=== PATIENT | female | born 1980 | race Hispanic/Latino ===

== ENCOUNTER 2020-01-08 06:50 | Outpatient (CLI) | payer OTHER, SELFPAY ==
--- NOTE | ~2020-01-08 | MR_ITS ---
EXAMINATION: MR lumbar spine wo [facility] EXAM DATE: 01/08/2020 07:26 INDICATION: Right-sided low back pain, buttock pain, hip and leg pain. TECHNIQUE: Multi-sequential, multiplanar MR images of the lumbar spine were obtained without contrast . Sagittal T1, T2, T2 fat saturation images. Axial T2 weighted images. There is no prior study for comparison. FINDINGS: There is moderate disc disease at L4-5 with disc extrusion that will be described below. Th ere are some degenerative endplate signal changes at this level. There are no suspicious focal verte bral signal abnormalities identified. Mild disc disease at L3-4 and L5-S1. The vertebral bodies are a ligned in the AP dimension. The conus medullaris terminates at the L1 level and has normal signal int ensity and morphology. Right renal fluid signal intensity lesion, imaged portion consistent with 2.4 cm cyst. Level by level evaluation: T12-L1: Disc does not extend beyond the endplate margin. Facet arthropathy: None. Neural foraminal stenosis: No stenosis. Central canal stenosis: No stenosis. L1-L2: Disc does not extend beyond the endplate margin. Facet arthropathy: Mild. Neural foraminal stenosis: No stenosis. Central canal stenosis: No stenosis. L2-L3: Disc does not extend beyond the endplate margin. Facet arthropathy: Mild to moderate. Neural foraminal stenosis: No stenosis. Central canal stenosis: No stenosis. L3-L4: There is a mild diffuse disc bulge. Facet arthropathy: Mild to moderate. Neural foraminal stenosis: No stenosis. Central canal stenosis: Mild. L4-L5: There is a mild to moderate diffuse disc bulge with superimposed moderate-sized right central extrusion causing mass effect on traversing L5 nerve root in the lateral recess. Facet arthropathy: Mild bilateral. Neural foraminal stenosis: Mild to moderate bilateral. Central canal stenosis: Significant right lateral recess, overall mild to moderate. L5-S1: There is a mild diffuse disc bulge. Facet arthropathy: Mild. Neural foraminal stenosis: No stenosis. Central canal stenosis: No stenosis. IMPRESSION: 1. L4-5 moderate disc disease, moderate sized extrusion causing mass effect on traversing right L5 n erve root in the lateral recess. Reviewed, dictated and finalized at location A. IMPRESSION: 1. L4-5 moderate disc disease, moderate sized extrusion causing mass effect on traversing right L5 nerve root in the lateral recess.
== END 2020-01-08 06:51 | disposition home or self-care (01) ==
LOC: ANHIMG 06:52
PROVIDERS: PCP Family Medicine; Visit Provider Family Medicine
DX: M54.16 Radiculopathy, lumbar region (principal); M51.9 Unspecified thoracic, thoracolumbar and lumbosacral intervertebral disc disorder
CPT/HCPCS: 72148

== ENCOUNTER → 2021-06-29 16:29 | Outpatient (CLI) | payer OTHER, SELFPAY ==
--- NOTE | ~2021-06-29 | MM_ITS ---
EXAMINATION: MM screening bea BI w harrison HISTORY: Screening mammogram TECHNIQUE: Craniocaudal and mediolateral oblique 3-D tomosynthesis images were obtained and synthetic 2-D images were generated. CAD analysis was submitted and interpreted. COMPARISON: None, baseline BREAST PARENCHYMAL COMPOSITION: The breasts are heterogeneously dense, which may obscure small masses . FINDINGS: RIGHT BREAST: There is no evidence of suspicious mass, calcification, or architectural distortion to suggest malignancy. LEFT BREAST: There is focal asymmetry in the upper outer quadrant of the breast. IMPRESSION: 1. Focal asymmetry of the left breast. 2. Additional mammographic views and possible breast ultrasound are recommended. BI-RADS Category 0: Incomplete: Needs additional imaging evaluation. Reviewed, dictated and finalized at location A. R DISTRIBUTION ENGINEER IMPRESSION: 1. Focal asymmetry of the left breast. 2. Additional mammographic views and possible breast ultrasound are recommended . BI-RADS Category 0: Incomplete: Needs additional imaging evaluation.
== END ==
PROVIDERS: Visit Provider Physician Assistant
DX: Z12.31 Encounter for screening mammogram for malignant neoplasm of breast (principal); R92.8 Other abnormal and inconclusive findings on diagnostic imaging of breast
CPT/HCPCS: 77063; 77067

== ENCOUNTER → 2021-07-21 07:35 | Outpatient (CLI) | payer OTHER, SELFPAY ==
--- NOTE | ~2021-07-21 | MMUS_ITS ---
EXAMINATION: MM diagnostic bea LT w harrison, US breast LT limited HISTORY: Follow-up left breast asymmetry TECHNIQUE: Additional 3-D tomosynthesis images of the left breast were performed and synthetic 2-D im ages were generated. CAD analysis was submitted and interpreted. High resolution Limited left breast ultrasound was performed. COMPARISON: 06/29/2021 BREAST PARENCHYMAL COMPOSITION: The breasts are heterogenously dense, which may obscure small masses. FINDINGS: MAMMOGRAPHIC FINDINGS: Asymmetry in the outer aspect of the left breast is less dense with spot compression views. No discre te mass, architectural distortion or suspicious cluster of calcifications are identified. ULTRASOUND: Limited left breast ultrasound: Normal heterogeneous echotexture without focal mass. IMPRESSION: 1. No evidence for malignancy in the left breast. 2. Routine yearly screening mammogram and regular clinical breast examination are recommended. BI-RADS Category 2: Benign finding(s). Reviewed, dictated and finalized at location A. IMPRESSION: 1. No evidence for malignancy in the left breast. 2. Routine yearly screening mammogram and regular clinical breast examination a re recommended. BI-RADS Category 2: Benign finding(s).
== END ==
PROVIDERS: PCP Physician Assistant; Visit Provider Physician Assistant
DX: R92.8 Other abnormal and inconclusive findings on diagnostic imaging of breast (principal)
CPT/HCPCS: 76642; 77061; 77065; G0279

== ENCOUNTER 2022-02-05 08:28 | Outpatient (CLI) | payer OTHER, SELFPAY | END 2022-02-05 08:29 | disposition home or self-care (01) | LOC: ANHSURGERY 08:34 | PROVIDERS: PCP Physician Assistant; Visit Provider Obstetrics & Gynecology | DX: Z01.812 Encounter for preprocedural laboratory examination (principal); N92.0 Excessive and frequent menstruation with regular cycle | CPT/HCPCS: 36415; 86850; 86900; 86901 ==

== ENCOUNTER 2022-02-12 00:58 | Day surgery (SDC) | payer OTHER, SELFPAY ==
[2022-02-01 15:47] VITALS: BMI 35.6
--- NOTE | 2022-02-01 15:49 | SUR.PREOP ---
Report to the Outpatient Waiting Room, entrance under the green pavilion located off [facility], at time _0600 on date _02/12/22 . OR Time: __729 . Time changes happen often and if your time is changed the preop area will call you the afternoon before. - You and your visitor will be asked to self-screen and do not enter if you have any COVID symptoms. - We encourage only one visitor and NO visitors under age 16 are allowed at this time. Your visitor will receive communication by the phone number that is given day of service. - The patient visitor is requested to social distance or may leave the building when not with patient due to restrictions. - A mask is required within the hospital. Patients may have clear liquids (water, carbonated beverages, clear teas, apple juice) until 3 hours prior to surgery with a maximum of 20 ounces. - No food from midnight until time of surgery - Infants may have breast milk until 4 hours before surgery, formula 6 hours prior to surgery. - Children will be allowed to drink immediately following surgery. If applicable, please bring a bottle or sippy cup to assist with drinking. Juice, water, soda, and popsicles are readily available. For infants on formula, please bring formula the day of surgery. Pacifiers are allowed. Take the following medications with a SIP of water the morning of surgery: _SERTRALINE Medications to discontinue per physician N/A Date to take last dose____N/A Please no make-up, nail [place] citizen, hairspray, perfume, deodorant, or body powder the day of surgery. No jewelry (including any body piercings) or valuables the day of surgery, leave them at home. Please take a shower or bath the night before, or the morning of, surgery with an antibacterial soap. Wear comfortable, loose fitting clothing. Children are encouraged to wear pajamas. - Jewelry must be removed prior to entering the operating room. Rings and piercings that are not removed may be cut off. - The hospital will not accept responsibility for valuables. - Please leave all valuables, including medications, at home the day of surgery. If you are going home after surgery, a licensed rear load truck driver must drive you home. - NO public transportation without another adult. - We recommend that an adult stay with you for 24 hours following discharge. - We also recommend that you do not drive, make important decision, drink alcoholic beverages, or take any drugs that were not prescribed by your health care provider for at least 24 hours after your discharge time. For Pediatric surgeries, we recommend two adults accompany the child home. Follow any additional instructions given to you from your surgeon. If you or anyone in your household have experienced Covid symptoms in the past week, please notify your surgeon or the nurse liaison at the phone number below for possible testing. Telephone instructions given to _NISA HOLLIDAY and asked if any additional questions and then verbalized understanding. Patient advised to call surgeon office or pre surgery nurse liaison [phone] if any additional questions.
--- NOTE | 2022-02-11 19:04 | PM.IMHP ---
H&P: HPI History of Present Illness Date/Time: 02/11/22 19:04 Chief Complaint: AUB Narrative: Lacie is a 41yo P2002, who presents for scheduled surgery. She has a normal pap 06/2020. She reports her cycles are extremely heavy and painful. They have been worsening over the last 6 months. She reports that she passes dime sized clots and has to wear a super plus tampon and pad because she bleeds through so quickly. She has extreme cramping that radiates down her legs and into her back. She is on iron for the last 6 months rx'ed by her PCP. She did have heavy bleeding like this around 2018 where US showed fibroids (largest measuring 2.6 and 3.8cm). She underwent HSC/D&C in 04/2019 and her bleeding did lighten until the beginning of this year. She denies any major pain outside of her cycle. Normal bowel function. She does report bothersome HEMAL. She is sexually active w/o issue; has BTL. US confirmed the fibroids have grown in size; largest is now 5.2cm, with another fibroid now noted. Her uterus has also increased in size. She is now ready to proceed with hysterectomy (her mother and 3 sisters all had to have hysterectomies due to AUB/fibroids). She is worried about time off and depression (had had it after every surgery; unsure if it's hormonal related, or just change in her normal schedule). Review of Systems Review of Systems: All systems reviewed & are unremarkable except as noted in HPI and below PMFSH Past Medical History Medical History Chronic low back pain Current severe episode of major depressive disorder without psychotic features (normal spontaneous vaginal delivery) (~1998) (normal spontaneous vaginal delivery) (~2002) Surgical History Surgical History H/O gynecological procedure Hysteroscopy remove myoma History of tubal ligation Status post breast reduction Reduction mammoplasty, bilateral Family History Family History Father Hypertension Patient's father is in good health Mother Hypertension Patient's mother is in good health Other Diabetes mellitus Social History Social History Smoking status: Never smoker Second hand tobacco smoke exposure: No Alcohol intake: current Drinks per week: 2 Substance use: never Substance use type: does not use Additional living arrangements comments: Additional occupation/education comments: Human resources Gender identity (if verbalized by the patient): Female Sexual Orientation (if Verbalized by the Patient): Straight or Heterosexual Spiritual care concerns: No Meds Home Medications and Allergies Home Medications Medication Instructions Recorded Confirmed Type sertraline 50 mg tablet 50 mg PO DAILY #90 tabs 01/30/22 02/01/22 Rx Allergies Allergy/AdvReac Type Severity Reaction Status Date / Time No Known Allergies Allergy Verified 02/01/22 15:28 Exam Const: General: cooperative, comfortable, no acute distress and obese Resp: Effort & Inspection: normal respiratory effort Cardio: Rate: regular rate GI: Inspection: normal to inspection GI Palp: No abdominal tenderness and Yes Soft to palpation : Other: deferred to the OR Skin: General skin exam: normal color Neuro: General: patient oriented x3 Extrem: General: normal to inspection Psych: Appearance: grossly normal Affect: normal affect Attitude: cooperative Assessment and Plan Assessment and plan (1) Fibroid uterus: Qualifiers: Uterine leiomyoma location: unspecified location Qualified Code(s): D25.9 - Leiomyoma of uterus, unspecified Code(s): D25.9 - Leiomyoma of uterus, unspecified Status: Acute (2) Menorrhagia: Qualifiers: Menorrhagia type: with regular cycle Qualified Code(s):
[2022-02-12] VITALS (13 sets, daily range): BP systolic 82–117; BP diastolic 38–74; PULSE 56–71; RESP 12–19; TEMP 36.3–36.8; O2SAT 93–100
[2022-02-12] MEDS: ACETAMINOPHEN 500 MG TABLET 1000 MG PO ×3 (06:35→23:04)
[2022-02-12] MEDS: KETOROLAC 15 MG/ML VIAL (*BKC) IV PUSH (06:59)
[2022-02-12] MEDS: LACTATED RINGERS 1,000 ML 30 ML IV CONT ×3 (07:00→10:55)
--- NOTE | 2022-02-12 07:00 | WPDHPUPDATE1 ---
History and Physical Update Update Date/Time: 02/12/22 07:00 History and Physical has been reviewed, including an updated exam of the patient. There are NO changes in the patient's condition. Risks, benefits, and alternatives have been discussed and questions answered. Patient agrees to proceed with procedure.
--- NOTE | 2022-02-12 07:02 | P.PNAN_ITS ---
Anes - Initial Pre Proc Eval Procedure: Operation Date: 02/12/22 07:30 Proposed Procedures p Robotic Assisted Total Laparoscopic Hysterectomy with Bilateral Salpingectomy - Yamileth Hull MD Date/Time: 02/12/22 07:02 Surgeon: Yamileth Hull MD Pre Op Diagnosis: menometrorrhagia, Uterine Fibroid Patient Data Age: 41 Gender: F Height: 1.68 m Weight: 100.4 kg Last Vital Signs Temp 36.5 C 02/12/22 06:56 Pulse 63 02/12/22 06:56 Resp 16 02/12/22 06:56 BP 117/64 02/12/22 06:56 Pulse Ox 98 02/12/22 06:56 O2 Del Method Room Air 02/12/22 06:56 Allergies Allergy/AdvReac Type Severity Reaction Status Date / Time No Known Allergies Allergy Verified 02/12/22 06:34 Home Medications Medication Instructions Recorded Confirmed Type sertraline 50 mg tablet 50 mg PO DAILY #90 tabs 01/30/22 02/12/22 Rx Patient hx anesthesia problems: none Family hx anesthesia problems: none Results Review: All pre-operative results and documents have been reviewed as part of the pre- operative evaluation. [facility] Past Medical History Medical History Chronic low back pain Current severe episode of major depressive disorder without psychotic features (normal spontaneous vaginal delivery) (~1998) (normal spontaneous vaginal delivery) (~2002) Surgical History Surgical History H/O gynecological procedure Hysteroscopy remove myoma History of tubal ligation Status post breast reduction Reduction mammoplasty, bilateral Family History Family History Father Hypertension Patient's father is in good health Mother Hypertension Patient's mother is in good health Other Diabetes mellitus Social History Social History Smoking status: Never smoker Second hand tobacco smoke exposure: No Alcohol intake: current Drinks per week: 2 Substance use: never Substance use type: does not use Living arrangements: with family Additional living arrangements comments: Additional occupation/education comments: Human resources Gender identity (if verbalized by the patient): Female Sexual Orientation (if Verbalized by the Patient): Straight or Heterosexual Spiritual care concerns: No Anes - Eval Final PreProcedure Day of Procedure 02/12/22 07:02 Patient weight: obese Heart: regular rate and rhythm Lungs: clear to auscultation Airway: Mallampati scale class II Neurological: alert and oriented Last oral intake: >/= 8 hours ASA classification: II Anesthetic plan: proceed Anesthesia type and monitoring: general ETT and standard monitoring Results Review: All pre-operative results and documents have been reviewed as part of the pre- operative evaluation. Informed Consent: The patient's anesthetic plan and its attendant risks and benefits were discussed with the patient/family/POA. Questions were solicited and answers provided to the satisfaction of the patient/family/POA.
[2022-02-12] MEDS: ceFAZolin 2 GM/D5W 50 ML 2 GM/50 ML BAG IVPB (07:26)
[2022-02-12] MEDS: LIDO 2%/EPINEPHRINE 1:100,000 20 ML VIAL 30 ML INFILTRATE (08:00)
--- NOTE | 2022-02-12 09:58 | W.PM.PROC2 ---
Procedure Note - Detailed Date of Procedure 02/12/22 Pre-op Diagnosis menometrorrhagia, Uterine Fibroid Post-op Diagnosis Same Procedure Performed RA-GRAHAM, BS, cystoscopy Surgeon Yamileth Hull MD Director Of Business Systems Jaskaran Anesthesia General Findings Uterus sounded to 10 cm, normal multiparous cervix. Right ovary with hemorrhagic cyst, normal left ovary. H/o tubal ligation with adhesions to the bilateral pelvic side garrido. Large anterior/fundal fibroid ~6-7cm, smaller posterior fibroid ~3-4cm. Multiple adhesions of the bladder to the mid uterus/anterior fibroid. Left paratubal cyst. Uterus bivalved intra-abdominally to be able to deliver vaginally (100cc of blood loss was from inside the uterus). Surgicel powder used at end of case. Good hemostasis noted. Normal bladder w/o defects that filled without issue; bilateral ureteral jets visualized. Description of Procedure Lacie was taken to the operating room where she was placed under general anesthesia without issues. She received 2 g Ancef. She was then prepped and draped in the usual sterile fashion in the dorsal lithotomy position with her legs in low Gopal stirrups and her arms tucked at her side. A time-out was performed. My attention was turned down below where a morales catheter was placed. A bivalve speculum was placed within the vagina. The cervix was easily identified and the anterior lip of the cervix was grasped with single-tooth tenaculum. The uterus was then sounded to 10cm. The cervix was serially dilated to allow for the MANOLO uterine manipulator; which was placed w/o issue (8cm tip with 3.5cm cervical ring). My gloves were changed and attention was then turned to the abdomen. A supraumbilical incision was made, and a 5 mm trocar was placed under direct visualization. Once intra-abdominal placement was confirmed, the abdomen was insufflated with carbon dioxide gas. An abdominal survey was performed and the above findings were noted. Two additional ports were placed on each the right side and left side under direct visualization without issues (5 ports in total). The umbilical port was switched out for a robotic port under direct visualization. The patient was then placed in deep Trendelenburg, with the legs slightly lowered. The robot was then docked. The instruments were placed intra-abdominally under direct visualization. I then un-scrubbed and went to the robotic console. I then started my hysterectomy on the right side. The ureter was easily identified transperitoneally and well out of the surgical field. The portion of the remaining fallopian tube was elevated and the mesosalpinx was coagulated and transected,the pelvic side wall adhesions were also taken down. The round ligament was clamped, coagulated, and transected. The uterine ovarian artery was then serially clamped, coagulated, and transected with good hemostasis. The broad ligament was then dissected anteriorly and posteriorly skeletonizing the uterine artery. The same procedure was then performed on the left side without complications. The bladder flap was then developed on the left side and carried around the right, anteriorly due to better visualization. The uterine arteries were then serially clamped and coagulated. Once the vessels were adequately coagulated, they were then transected with good hemostasis. The uterus was noted to be devascularized. The bladder flap was verified out of the surgical field and the colpotomy was started anteriorly and continued in a clockwise fashion until the uterus was released. The uterus was unable to be delivered vaginally due to it's large size. The uterus was bi-valved and cut in half. The halves were then removed from the abdomen via the vagina without complications. The vaginal cuff had small bleeders that were made hemostatic without complications. The vaginal cuff was then reapproximated using a 0 V lock suture. The pelvis was then copiously irrigated and suctioned free of all clots and debris.
[2022-02-12] MEDS: fentaNYL CITRATE INJ (*CRX) 100 MCG/2 ML VIAL 25 MCG IV PUSH ×4 (10:33→11:02)
--- NOTE | 2022-02-12 10:45 | SUR.PHASEI ---
1045: Simple mask removed.
--- NOTE | 2022-02-12 11:13 | SUR.PHASEI ---
Dr. To aware of soft BP.
[2022-02-12] MEDS: DEXTROSE 5%/LACTATED RINGERS 1,000 ML 125 ML IV CONT (11:55)
[2022-02-12] MEDS: KETOROLAC 30 MG/ML VIAL (*BKC) IV PUSH ×2 (11:56→18:32)
[2022-02-12] MEDS: SIMETHICONE 80 MG TAB.CHEW PO ×2 (11:59→15:06)
[2022-02-12] MEDS: PROPARACAINE HCL 0.5% 15 ML OPHTH SOLN 1 DROP EACH EYE (14:31)
[2022-02-12] MEDS: DICLOFENAC SODIUM 0.1% OPHTH SOLN 2.5 ML BOTTLE 1 DROP EACH EYE ×2 (15:07→23:04)
[2022-02-12] MEDS: DOCUSATE SODIUM 100 MG CAPSULE PO (18:33)
[2022-02-13 03:00] VITALS: BP 104/60; PULSE 58; RESP 16; TEMP 36.1; O2SAT 97
[2022-02-13 04:37] LABS: Basophils Percent Auto 0.1 % (0.2-1.2); Eosinophils Percent Auto 0.1 % (0-4.4); Hemoglobin 11.6 g/dL (12.0-15.0); Immature Granulocyte Absolute 0.04 K/mm3 (0.00-0.031); Immature Granulocyte Percent A 0.4 % (0-0.5); Lymphocytes Absolute Auto 1.56 K/mm3 (0.9-3.2); Lymphocytes Percent Auto 15.9 % (18.3-44.2); Mean Corpuscular HGB Conc 31.4 g/dl (32-36); Mean Platelet Volume 11.8 fl (7.4-10.4); Monocytes Absolute Auto 0.4 K/mm3 (0.1-0.6); Monocytes Percent Auto 3.6 % (2.6-8.5); Neutrophils Absolute Auto 7.8 K/mm3 (1.3-6.7); Neutrophils Percent Auto 79.9 % (45.5-73.1); Platelet Count Result 251 k/mm3 (150-375); Red Cell Distribution Width 15.1 % (11.5-14.5); White Blood Count 9.8 K/mm3 (4.5-10.0)
[2022-02-13 04:55] LABS: Anion Gap 8 mmol/L (8-16); Blood Urea Nitrogen 9 mg/dL (7-17); Calcium 8.3 mg/dL (8.4-10.2); Carbon Dioxide 22 mmol/L (22-30); Chloride 107 mmol/L (98-107); Estimated CRCL calculation 109 ml/min; Estimated Glomerular Filt Rate > 60; Glucose 171 mg/dL (65-110); Potassium 3.3 mmol/L (3.4-5.0); Sodium 137 mmol/L (137-145)
--- NOTE | 2022-02-13 05:51 | PM.GYNPNOP ---
TECHNICAL ENGINEER - A/P Assessment and plan (1) S/P laparoscopic hysterectomy: Code(s): Z90.710 - Acquired absence of both cervix and uterus Status: Acute Postoperative Procedures: Procedures Operation Date: 02/12/22 07:30 Actual Procedure Side Surgeon p Robotic Assisted Total Laparoscopic Hysterectomy with Bilateral Salpingectomy Bilateral Yamileth Hull MD Postoperative day: 1 Postoperative status: doing well Postoperative plan: routine post-op care and discharge Time Spent With Patient Time: Total time spent is greater than 50% in coordination of care (as documented) at patient's floor/unit and/or counseling patient: Time with patient: less than 15 minutes TECHNICAL ENGINEER- PN:Subj Post-Op Subjective Date/time seen: 02/13/22 05:51 Interval history: POD #1 s/p RA-TLH, BS, yfn Lacie reports doing well this morning. Her pain is controlled w/ PO meds. She has tolerated small amounts of food w/o N/V. She has ambulated. She has voided. She denies any symptoms of anemia. No vaginal bleeding. No issues with her incisions. Review of Systems Constitutional: Constitutional: Denies chills, Denies fever(s) and Denies headache(s) ENT: Denies dizziness and Denies headache(s) Cardiovascular: Cardiovascular: Denies chest pain, Denies palpitations and Denies dyspnea Respiratory: Respiratory: Denies cough and Denies dyspnea Gastrointestinal: Gastrointestinal: Denies nausea and Denies vomiting Genitourinary: Genitourinary: Denies abnormal vaginal bleeding Neurologic: Denies dizziness and Denies headache(s) Endocrine: Endocrine: Denies palpitations Exam Const: General: cooperative, comfortable, no acute distress and obese Orientation/consciousness: patient oriented x3 Resp: Effort & Inspection: normal respiratory effort Auscultation: clear to auscultation bilaterally Cardio: Rate: regular rate GI: Inspection: non-distended and incision (covered with dermabond) GI Palp: Yes abdominal tenderness (appropriate) and Yes Soft to palpation Auscultation: normal bowel sounds : Speculum Exam - Vagina: No vaginal bleeding Skin: General skin exam: normal color Neuro: General: patient oriented x3 Extrem: General: normal to inspection Psych: Appearance: grossly normal Affect: normal affect Attitude: cooperative TECHNICAL ENGINEER - PN: Obj Data Vital Signs Vital Signs: Vital Signs - 24 hr 02/12/22 06:56 02/12/22 10:11 02/12/22 10:25 Temperature 97.7 F 97.7 F Pulse Rate 63 68 60 Respiratory Rate 16 15 19 Blood Pressure 117/64 84/38 L 100/74 Pulse Oximetry 98 100 100 Oxygen Delivery Room Air Simple Face Mask Simple Face Mask Oxygen Flow Rate 8 10 02/12/22 10:40 02/12/22 10:55 02/12/22 11:10 Temperature Pulse Rate 56 L 60 58 L Respiratory Rate 12 16 14 Blood Pressure 104/56 L 93/45 L 82/49 L Pulse Oximetry 100 97 93 Oxygen Delivery Simple Face Mask Room Air Room Air Oxygen Flow Rate 10 02/12/22 11:21 02/12/22 11:35 02/12/22 12:28 Temperature 97.6 F Pulse Rate 60 65 65 Respiratory Rate 15 16 Blood Pressure 92/58 L 112/55 L 91/40 L Pulse Oximetry 94 98 Oxygen Delivery Room Air Oxygen Flow Rate 02/12/22 13:00 02/12/22 15:30 02/12/22 19:25 Temperature 97.3 F L 98.2 F Pulse Rate 66 71 64 Respiratory Rate 16 16 Blood Pressure 110/54 L 112/56 L 106/54 L Pulse Oximetry 96 98 97 Oxygen Delivery Oxygen Flow Rate 02/12/22 23:00 02/13/22 03:00 Temperature 97.5 F L 97 F L Pulse Rate 61 58 L Respiratory Rate 16 16 Blood Pressure 101/54 L 104/60 Pulse Oximetry 96 97 Oxygen Delivery Oxygen Flow Rate Intake/Output Intake/Output: Intake & Output 02/10/22 02/11/22 02/12/22 02/13/22 23:59 23:59 23:59 23:59 Intake Total 4190 Output Total 2530 Balance 1660 Meds/Results Medications: Active Medications Generic Name Dose Route Start Last Admin Trade Name Freq PRN Reason Stop Dose Admin Acetaminophen 1,000 mg 02/12/22 11:31 02/12/22 23:04 Acetaminoph
[2022-02-13 07:40] VITALS: BP 91/46; PULSE 64; RESP 18; TEMP 36.9; O2SAT 100
[2022-02-13 08:00] VITALS: PULSE 64; RESP 18; O2SAT 100
[2022-02-13] MEDS: SERTRALINE HCL 50 MG TABLET PO (08:02)
[2022-02-13] MEDS: SIMETHICONE 80 MG TAB.CHEW PO (08:02)
[2022-02-13] MEDS: DOCUSATE SODIUM 100 MG CAPSULE PO (08:03)
[2022-02-13] MEDS: DICLOFENAC SODIUM 0.1% OPHTH SOLN 2.5 ML BOTTLE 1 DROP EACH EYE (08:03)
[2022-02-13] MEDS: ACETAMINOPHEN 500 MG TABLET 1000 MG PO (08:04)
[2022-02-13] MEDS: oxyCODONE HCL (*CRX) 5 MG TAB IR PO ×2 (08:07→11:17)
--- NOTE | 2022-02-13 08:39 | WPDANESPN ---
Anes - Prog Note Post-Op Date/Time: 02/13/22 08:39 Cardiovascular status: normal Respiratory status: normal Airway patency: baseline Mental status: baseline Post-Op hydration status: normal Vital Signs: Last Vital Signs Temp 97 F L 02/13/22 03:00 Pulse 58 L 02/13/22 03:00 Resp 16 02/13/22 03:00 BP 104/60 02/13/22 03:00 Pulse Ox 97 02/13/22 03:00 O2 Del Method Room Air 02/12/22 11:21 O2 Flow Rate 10 02/12/22 10:40 Pain Score (VAS): 0 I/O: Intake & Output 02/12/22 02/13/22 02/13/22 23:59 07:59 15:59 Intake Total 240 Output Total 1400 Balance -1160 Laboratory Tests 02/13/22 03:54 02/13/22 03:54 02/13/22 02/13/22 03:54 03:54 WBC 9.8 RBC 4.30 Hgb 11.6 L Hct 37.0 MCV 86.0 MCH 27.0 MCHC 31.4 L RDW 15.1 H Plt Count 251 MPV 11.8 H Immature Gran % (Auto) 0.4 Neut % (Auto) 79.9 H Lymph % (Auto) 15.9 L [place] % (Auto) 3.6 Eos % (Auto) 0.1 Baso % (Auto) 0.1 L Lymph # (Auto) 1.56 [place] # (Auto) 0.4 Eos # (Auto) 0.0 Baso # (Auto) 0.0 Abs Immat Gran (auto) 0.04 H Absolute Neuts (auto) 7.8 H Absolute Nucleated RBC 0.0 Nucleated RBC % 0.0 Sodium 137 Potassium 3.3 L Chloride 107 Carbon Dioxide 22 Anion Gap 8 BUN 9 Creatinine 0.70 Estim Creat Clear Calc 109 Estimated GFR > 60 Glucose 171 H Calcium 8.3 L Post-procedural complaints: none Patient Feedback: Patient satisfied with anesthetic care.
== END 2022-02-13 11:20 | disposition home or self-care (01) ==
LOC: ANHSURGERY 05:53 → ANHOB2 11:33
PROVIDERS: PCP Physician Assistant; Visit Provider Obstetrics & Gynecology
PROC: (CPT 58571; principal; 2022-02-12 07:30)
DX: N92.1 Excessive and frequent menstruation with irregular cycle (principal); N73.6 Female pelvic peritoneal adhesions (postinfective); D25.9 Leiomyoma of uterus, unspecified; N87.9 Dysplasia of cervix uteri, unspecified; N83.8 Other noninflammatory disorders of ovary, fallopian tube and broad ligament
CPT/HCPCS: 58571; S2900; 36415; 80048; 85025; 86850; 86900; 86901; 88307; 99199; A9270; J0690; J1100; J1885; J2250; J2405; J2704; J3010; J7030; J7120; J7121

== ENCOUNTER 2022-04-01 10:59 | Emergency (ER) | payer OTHER, SELFPAY ==
--- NOTE | 2022-04-01 11:11 | ED.FEMALEGU ---
HPI - Female Genitourinary General Chief complaint: Urogenital-Female Stated complaint: uti Time Seen by Provider: 04/01/22 12:03 Source: patient and RN notes reviewed Mode of arrival: ambulatory Limitations: no limitations History of Present Illness HPI Narrative: 41-year-old female presents with concern for urine frequency, urgency, dysuria that started last. Reports frequent UTIs with the same symptoms. She reports she had a hysterectomy about 6 weeks ago. She denies fever, aches, chills, sweats, back pain, nausea, abdominal pain. MD elicited complaint: UTI Related Data Allergies Allergy/AdvReac Type Severity Reaction Status Date / Time No Known Allergies Allergy Verified 04/01/22 11:39 Review of Systems Review of Systems: CONSTITUTIONAL: Denies malaise, chills, sweats, or fever. CARDIOVASCULAR: Denies chest pain, palpitations, or edema. RESPIRATORY: Denies cough or dyspnea. GASTROINTESTINAL: Denies abdominal pain, nausea, vomiting, diarrhea GENITOURINARY: Reports dysuria, frequency, urgency. Denies suprapubic pressure. Denies flank pain or hematuria. SKIN: Denies rash or itching. MUSCULOSKELETAL: Denies back pain or myalgia. All systems reviewed & are unremarkable except as noted in HPI and below PMFSH Past Medical History Medical History Chronic low back pain Current severe episode of major depressive disorder without psychotic features (normal spontaneous vaginal delivery) (~1998) (normal spontaneous vaginal delivery) (~2002) Surgical History Surgical History H/O gynecological procedure Hysteroscopy remove myoma History of gynecologic surgery hysterectomy - 02/13/22 History of tubal ligation Status post breast reduction Reduction mammoplasty, bilateral Family History Family History Father Hypertension Patient's father is in good health Mother Hypertension Patient's mother is in good health Other Diabetes mellitus Social History Social History Smoking status: Never smoker Second hand tobacco smoke exposure: No Alcohol intake: current Drinks per week: 2 Substance use: never Substance use type: does not use Additional living arrangements comments: Additional occupation/education comments: Human resources Gender identity (if verbalized by the patient): Female Sexual Orientation (if Verbalized by the Patient): Straight or Heterosexual Spiritual care concerns: No Comments At time of signature, agree with nursing past medical, surgical, social and family history. There is no relevant family history pertinent to the presenting complaint Exam Narrative: GENERAL: Well-appearing, well-nourished, and in no acute distress. HEAD: Normocephalic. EYES: PERRLA, conjunctivae clear. NECK: Supple. No lymphadenopathy CHEST: Clear to auscultation. No respiratory distress. HEART: Regular rate and rhythm. ABDOMEN: Soft, nontender upon palpation, nondistended, normal active bowel sounds, no palpable or pulsatile masses, no guarding. No CVA tenderness SKIN: Warm, dry, no rash. NEURO: Alert and oriented x3. PSYCH: Normal mood and affect Course Course Emergency Course: Patient is aware of diagnosis, understands and agrees to treatment plan. Anticipatory guidance given. Patient agrees to follow-up as directed and is aware of reasons to seek care at the emergency department. Portions of this record may have been created with voice recognition software Level of Care: Express Care Visit Vital Signs Vital signs: Vital Signs Temperature 98.4 F 04/01/22 11:37 Pulse Rate 70 04/01/22 11:37 Respiratory Rate 16 04/01/22 11:37 Blood Pressure 81/60 L 04/01/22 11:37 Pulse Oximetry 99 04/01/22 11:37 Oxygen Delivery Room Air 04/01/22 11:37 Tem
[2022-04-01 11:37] VITALS: BP 81/60; PULSE 70; RESP 16; TEMP 36.9; O2SAT 99
== END 2022-04-01 12:15 | disposition home or self-care (01) ==
PROVIDERS: Emergency Provider Nurse Practitioner; PCP Physician Assistant
DX: R35.0 Frequency of micturition (principal); R30.0 Dysuria; R39.15 Urgency of urination; F32.9 Major depressive disorder, single episode, unspecified
CPT/HCPCS: 81003; 87077; 87086; 87186; 99213; G0463

== ENCOUNTER → 2022-08-08 16:47 | Outpatient (CLI) | payer OTHER, SELFPAY ==
--- NOTE | ~2022-08-08 | MM_ITS ---
EXAMINATION: MM screening bea BI w harrison HISTORY: Screening mammogram TECHNIQUE: Craniocaudal and mediolateral oblique 3-D tomosynthesis images were obtained and synthetic 2-D images were generated. CAD analysis was submitted and interpreted. COMPARISON: 07/21/2021 diagnostic left mammogram and limited left breast ultrasound examination 07/16/2021 bilateral screening mammogram BREAST PARENCHYMAL COMPOSITION: The breasts are heterogeneously dense, which may obscure small masses . FINDINGS: Right breast: There is no evidence of suspicious mass, calcification, or architectural distortion to suggest malignancy in the right breast. There has been no suspicious interval change. Left breast: Asymmetries are noted on the left, particularly in the mid to upper outer left breast, w here architectural distortion is suggested on the MLO view. Diagnostic left mammogram and left breast ultrasound examination are recommended. IMPRESSION: 1. Left mammographic asymmetries, possible architectural distortion 2. Diagnostic left mammogram and left breast ultrasound examination are recommended BI-RADS Category 0: Incomplete: Needs additional imaging evaluation. Reviewed, dictated and finalized at location A. IMPRESSION: 1. Left mammographic asymmetries, possible architectural distortion 2. Diagnostic left mammogram and left breast ultrasound examination are recomme nded BI-RADS Category 0: Incomplete: Needs additional imaging evaluation.
== END ==
PROVIDERS: PCP Physician Assistant; Visit Provider Physician Assistant
DX: Z12.31 Encounter for screening mammogram for malignant neoplasm of breast (principal); R92.8 Other abnormal and inconclusive findings on diagnostic imaging of breast
CPT/HCPCS: 77063; 77067

== ENCOUNTER → 2022-09-06 07:39 | Outpatient (CLI) | payer OTHER, SELFPAY ==
--- NOTE | ~2022-09-06 | MM_ITS ---
EXAMINATION: MM diagnostic bea LT w harrison HISTORY: Focal asymmetry of the left breast and possible architectural distortion on screening mammog jama TECHNIQUE: Additional 3-D tomosynthesis images of the left breast were performed and synthetic 2-D im ages were generated. CAD analysis was submitted and interpreted. COMPARISON: 08/08/2022, 07/21/2021, 06/29/2021 FINDINGS: There is stable focal asymmetry in the upper outer quadrant of the breast. No architectural distortion or suspicious calcification are identified. IMPRESSION: 1. No mammographic evidence of malignancy. 2. Recommend routine screening mammography in one year. BI-RADS Category 2: Benign finding(s). Reviewed, dictated and finalized at location A.
== END ==
PROVIDERS: PCP Physician Assistant; Visit Provider Physician Assistant
DX: R92.8 Other abnormal and inconclusive findings on diagnostic imaging of breast (principal)
CPT/HCPCS: 77061; 77065; G0279

== ENCOUNTER 2023-03-23 10:07 | Emergency (ER) | payer OTHER, SELFPAY ==
[2023-03-23 10:27] VITALS: BP 123/58; PULSE 78; RESP 16; TEMP 36.4; O2SAT 100
--- NOTE | 2023-03-23 10:43 | ED.SKABFB ---
HPI - Skin/Abscess/Foreign Bdy General Chief complaint: Skin/Abscess/Foreign Body Stated complaint: Body Rash Time Seen by Provider: 03/23/23 10:44 Source: patient and RN notes reviewed Mode of arrival: ambulatory Limitations: no limitations History of Present Illness HPI narrative: 42 year old female presents with concern for rash. She reports she was exposed to poison renate/sumac from her 2 weeks ago. Reports she took a Medrol Dosepak without relief, her doctor gave her shot on Saturday without relief. She reports she has been using calamine lotion with temporary it relief. She reports the rash is generalized. She denies swollen lips, swollen tongue, trouble breathing. MD complaint: rash Related Data Home Medications Medication Instructions Recorded Confirmed triamcinolone acetonide 0.1 % topical 03/23/23 topical ointment Allergies Allergy/AdvReac Type Severity Reaction Status Date / Time No Known Allergies Allergy Verified 03/23/23 10:27 Review of Systems Review of Systems: CONSTITUTIONAL: Denies malaise, chills, sweats, or fever. EYES: Denies redness, or discharge. ENT: Denies rhinorrhea, congestion, swollen lips, swollen tongue CARDIOVASCULAR: Denies chest pain, palpitations, or edema. RESPIRATORY: Denies cough or dyspnea. GASTROINTESTINAL: Denies abdominal pain, nausea, vomiting SKIN: Reports generalized itchy rash MUSCULOSKELETAL: Denies joint pain or myalgia. NEUROLOGIC: Denies headache. All systems reviewed & are unremarkable except as noted in HPI and below PMFSH Past Medical History Medical History Chronic low back pain Current severe episode of major depressive disorder without psychotic features (normal spontaneous vaginal delivery) (~1998) (normal spontaneous vaginal delivery) (~2002) Surgical History Surgical History H/O gynecological procedure Hysteroscopy remove myoma History of gynecologic surgery hysterectomy - 02/13/22 History of tubal ligation Status post breast reduction Reduction mammoplasty, bilateral Family History Family History Father Hypertension Patient's father is in good health Mother Hypertension Patient's mother is in good health Other Diabetes mellitus Social History Social History Smoking status: Never smoker Second hand tobacco smoke exposure: No Alcohol intake: current Drinks per week: 2 Substance use: never Substance use type: does not use Living arrangements: with family Additional living arrangements comments: Occupation/Education: occupation Additional occupation/education comments: Human resources Gender identity (if verbalized by the patient): Female Sexual Orientation (if Verbalized by the Patient): Straight or Heterosexual Spiritual care concerns: No Comments At time of signature, agree with nursing past medical, surgical, social and family history. There is no relevant family history pertinent to the presenting complaint Exam Narrative: GENERAL: Well-appearing, well-nourished, and in no acute distress. HEAD: Normocephalic, atraumatic. EYES: PERRLA, conjunctivae clear, and EOMI. ENT: Mucous membranes moist. Oropharynx without edema, erythema or lesions. NECK: Supple. No lymphadenopathy CHEST: Clear to auscultation. No respiratory distress. HEART: Regular rate and rhythm. SKIN: Warm, dry. Patches erythematous papules noted to the torso NEURO: Alert and oriented x3. PSYCH: Normal mood and affect Course Course Emergency Course: Patient is aware of diagnosis, understands and agrees to treatment plan. Anticipatory guidance given. Patient agrees to follow-up as directed and is aware of reasons to seek care at the emergency department. Portions of this record may have
== END 2023-03-23 10:57 | disposition home or self-care (01) ==
PROVIDERS: Emergency Provider Nurse Practitioner; PCP Physician Assistant
DX: L25.9 Unspecified contact dermatitis, unspecified cause (principal)
CPT/HCPCS: 99213; G0463

== ENCOUNTER 2024-01-13 14:49 | Outpatient (CLI) | payer OTHER, SELFPAY ==
--- NOTE | ~2024-01-13 | MM_ITS ---
EXAMINATION: MM screening bea BI w harrison HISTORY: Screening mammogram TECHNIQUE: Craniocaudal and mediolateral oblique 3-D tomosynthesis images were obtained and synthetic 2-D images were generated. CAD analysis was submitted and interpreted. COMPARISON: 08/08/2022, 06/29/2021 BREAST PARENCHYMAL COMPOSITION:Not Dense. There are scattered areas of fibroglandular density. FINDINGS: No suspicious mass, calcification, or architectural distortion are identified in either mervin ast to suggest malignancy. There has been no suspicious interval change. IMPRESSION: No mammographic evidence of malignancy. Recommend routine screening mammography in one year. BI-RADS Category 1: Negative Reviewed, dictated and finalized at location .
== END 2024-01-13 14:50 | disposition home or self-care (01) ==
LOC: MICIMG 14:50
PROVIDERS: PCP Physician Assistant; Visit Provider Physician Assistant
DX: Z12.31 Encounter for screening mammogram for malignant neoplasm of breast (principal)
CPT/HCPCS: 77063; 77067

== ENCOUNTER 2024-05-03 09:45 | Emergency (ER) | payer OTHER, SELFPAY ==
--- NOTE | 2024-05-03 09:52 | ED.URI ---
HPI - URI/Sore Throat General Chief Complaint: Upper Respiratory Infection Stated Complaint: Sore Throat Time Seen by Provider: 05/03/24 10:00 Source: patient and RN notes reviewed Mode of arrival: ambulatory Limitations: no limitations History of Present Illness HPI Narrative: 43-year-old female presents with concern for sore throat she thigh pain it she was treated for strep about a month ago, she never had full resolution of symptoms, she still had sinus congestion, pressure. She now has sore throat again, sinus pain. She reports fatigue and body aches MD elicited complaint: sore throat, nasal congestion and sinus pain Related Data Allergies Allergy/AdvReac Type Severity Reaction Status Date / Time No Known Allergies Allergy Verified 05/03/24 09:48 Review of Systems Review of Systems: CONSTITUTIONAL: Reports fatigue and malaise. Denies chills, sweats, or fever. EYES: Denies visual changes, redness, or discharge. ENT: Reports rhinorrhea, congestion, sinus pain, and sore throat. CARDIOVASCULAR: Denies chest pain, palpitations, or edema. RESPIRATORY: Reports cough. Denies dyspnea. GASTROINTESTINAL: Denies abdominal pain, nausea, vomiting, diarrhea SKIN: Denies rash or itching. MUSCULOSKELETAL: Reports myalgia. NEUROLOGIC: Denies headache. All systems reviewed & are unremarkable except as noted in HPI and below PMFSH Past Medical History Medical History Chronic low back pain Current severe episode of major depressive disorder without psychotic features (normal spontaneous vaginal delivery) (~1998) (normal spontaneous vaginal delivery) (~2002) Surgical History Surgical History H/O gynecological procedure Hysteroscopy remove myoma History of gynecologic surgery hysterectomy - 02/13/22 History of tubal ligation Status post breast reduction Reduction mammoplasty, bilateral Family History Family History Father Hypertension Patient's father is in good health Mother Hypertension Patient's mother is in good health Other Diabetes mellitus Social History Social History Smoking status: Never smoker Second hand tobacco smoke exposure: No Alcohol intake: current Drinks per week: 2 Substance use: never Substance use type: does not use Living arrangements: with family Additional living arrangements comments: Occupation/Education: occupation Additional occupation/education comments: Human resources Gender identity (if verbalized by the patient): Female Sexual Orientation (if Verbalized by the Patient): Straight or Heterosexual Spiritual care concerns: No Comments At time of signature, agree with nursing past medical, surgical, social and family history. There is no relevant family history pertinent to the presenting complaint Exam Narrative: GENERAL: Well-appearing, well-nourished, and in no acute distress. HEAD: Normocephalic EYES: PERRLA, conjunctivae clear ENT: Nares clear. Mucous membranes moist. TM pearly swenson with dull light reflex bilaterally; no tragal tenderness. Oropharynx not erythematous without lesions. Tonsils not enlarged and without exudate, no drooling, no hoarseness, no trismus, uvula midline. NECK: Supple. No lymphadenopathy CHEST: Clear to auscultation, breath sounds equal. No wheezing, rhonchi, rales, or stridor. No respiratory distress, speaks in full sentences. HEART: Regular rate and rhythm. No murmur heard. SKIN: Warm, dry, no rash. NEURO: Alert and oriented x3. PSYCH: Normal mood and affect Course Course Emergency Course: Patient is aware of diagnosis, understands and agrees to treatment plan. Anticipatory guidance given. Patient agrees to follow-up as directed and is aware of reasons to seek care at the emergency department. Portions of this record may have been created with voice recognition software Level of Care: Express Care Visit Vital Signs Vital signs: Reviewed. MDM - URI/Sore Throat MDM Narrative Medical decision making narrative: Differential diagnosis considered: Liz virus, strep pharyngitis, allergic rhinitis, upper respiratory tract infection, sinusitis, rhinosinusitis, nasopharyngitis. viral pharyngitis, otitis media, otitis externa, pneumonia, bronchitis, viral cough syndrome, viral syndrome, and influenza. Exam findings show no acute concerns or changes; patient is non-toxic appearing and is in no distress. Patient is appropriate for outpatient treatment and follow-up. Lab Data Attestation: I reviewed the patient's lab results. Critical Care Time Critical Care Time Critical Care Time: No Discharge Plan Discharge Clinical Impression: Acute bacterial sinusitis Patient Disposition: Home, Self-Care Condition: Stable Instructions: Antibiotic Form, Sinusitis (ED) Additional Instructions: Take medication as prescribed Nonprescription pain medications, such as acetaminophen (eg, Tylenol) or ibuprofen (eg, Motrin, Advil), are recommended for pain. Flushing the nose and sinuses with a saline solution several times per day has been proven to decrease pain associated with congestion and shorten the duration of symptoms. Nasal steroids (such as Flonase, 2 sprays in each nostril daily) can help to reduce swelling inside the nose, usually within two to three days. These drugs have few side effects and relieve symptoms in most people. Oral decongestants (pseudoephedrine and phenylephrine) may be helpful if you have associated symptoms of ear pain or fullness. Nasal decongestant sprays, including oxymetazoline (Afrin) and phenylephrine (Cole-Synephrine), can be used to temporarily treat congestion. However, these sprays should not be used for more than two to three days due to the risk of rebound congestion (when the nose becomes congested constantly unless the medication is used repeatedly), possible addiction, and long-term consequences of frequent use, including persistent nasal dryness and crusting, which is very difficult to treat once it has developed. Medications to thin secretions (such as guaifenesin) may help to clear mucus. Please follow-up with your primary care doctor in the next 1-2 days. If you cannot follow-up with your primary care doctor please go to the ED for any urgent issues. If you have any worsening of symptoms or any other concerns please go to the ED immediately. Patient Language: Romansh Prescriptions: New methylprednisolone [Medrol (Jann)] 4 mg tablets,dose pack See Rx Instructions .ROUTE .COMPLEX Qty: 21 0RF Rx Instructions: orally per package directions amoxicillin-pot clavulanate 875-125 mg tablet 1 tablet PO Q12H 10 Days Qty: 20 0RF Follow-up/Referrals: Saul,WALTER Alba [Primary Care Provider] - Time of Disposition: 10:08
[2024-05-03 10:03] VITALS: BP 98/48; PULSE 84; RESP 16; TEMP 37.2; O2SAT 100
[2024-05-03 10:07] LABS: EDSTREPNEGPOS1 Negative (Negative)
[2024-05-03 10:33] LABS: EDSTREPNEGPOS1 Negative (Negative)
== END 2024-05-03 10:10 | disposition home or self-care (01) ==
PROVIDERS: Emergency Provider Nurse Practitioner; PCP Physician Assistant
DX: J01.90 Acute sinusitis, unspecified (principal)
CPT/HCPCS: 87880; 99213; G0463

== ENCOUNTER 2024-12-07 12:47 | Emergency (ER) | payer OTHER, SELFPAY ==
[2024-12-07 12:57] VITALS: BP 130/105; PULSE 77; RESP 18; TEMP 36.2; O2SAT 100
--- NOTE | 2024-12-07 13:43 | ED.SKABFB ---
HPI - Skin/Abscess/Foreign Bdy General Chief complaint: Skin/Abscess/Foreign Body Stated complaint: Rash Source: patient, RN notes reviewed and old records reviewed Mode of arrival: ambulatory Limitations: no limitations History of Present Illness HPI narrative: 44-year-old female presents to the [facility] with complaints of a rash that started 1 day ago. 3 x 3 red patch to the left upper chest, small patch to the right lower back, small red raised bump 0.5 cm to the left lower medial leg. Patient states that whenever she gets poison renate it always gets really bad, states that she wants to get treated before does get bad. Has not taken anything prior to arrival. Reports it as being very itchy Treatments prior to arrival: none Related Data Allergies Allergy/AdvReac Type Severity Reaction Status Date / Time No Known Allergies Allergy Verified 12/07/24 13:16 Review of Systems Review of Systems: All systems reviewed & are unremarkable except as noted in HPI and below Constitutional: Constitutional: Reports no additional constitutional complaints ENT: Reports system reviewed and no additional complaints, except as documented Cardiovascular: Cardiovascular: Reports no additional cardiovascular complaints, Denies chest pain and Denies dyspnea Respiratory: Respiratory: Reports no additional respiratory complaints, Denies chest congestion, Denies cough and Denies dyspnea Musculoskeletal: Musculoskeletal: Reports no additional musculoskeletal complaints Integumentary/Breasts: Skin/Breast: Reports as per HPI and Reports rash PMFSH Past Medical History Medical History Chronic low back pain Current severe episode of major depressive disorder without psychotic features (normal spontaneous vaginal delivery) (~1998) (normal spontaneous vaginal delivery) (~2002) Surgical History Surgical History H/O gynecological procedure Hysteroscopy remove myoma History of gynecologic surgery hysterectomy - 02/13/22 History of tubal ligation Status post breast reduction Reduction mammoplasty, bilateral Family History Family History Father Hypertension Patient's father is in good health Mother Hypertension Patient's mother is in good health Other Diabetes mellitus Social History Social History Smoking status: Never smoker Second hand tobacco smoke exposure: No Alcohol intake: current Drinks per week: 2 Substance use: never Substance use type: does not use Living arrangements: with family Additional living arrangements comments: Occupation/Education: occupation Additional occupation/education comments: Human resources Gender identity (if verbalized by the patient): Female Sexual Orientation (if Verbalized by the Patient): Straight or Heterosexual Spiritual care concerns: No Comments At the time of my signature, I reviewed and agree with the nursing past medical, surgical, social, and family history. There is no relevant family history pertinent to the patient complaint. Exam Const: General: cooperative, healthy appearing, comfortable, no acute distress, well developed, alert and well nourished Nutritional Appearance: well nourished and obese Orientation/consciousness: patient oriented x3 Limitations: no limitations HENMT: Head: normal to inspection Mouth: Yes Normal oral and palatal mucosa present, Yes lip normal, Yes tongue normal and Yes moist mucous membranes Eyes: General: appearance normal, both eyes and all related structures Alignment and Position: alignment normal Neck: Neck: normal visual inspection, full ROM, no lymphadenopathy and no meningeal signs Chest: Chest palpation & inspection: normal inspection of the chest Resp: Effort & Inspection: normal respiratory effort and able to speak in complete sentences Auscultation: clear to auscultation bilaterally, no crackles, no rales, no rhonchi and no wheezes Cardio: Rate: regular rate Skin: General skin exam: normal color and no rashes or lesions noted Rashes: rashes noted Full body images:  1. 3 x 3 cm pink raised, itchy area Neuro: General: patient oriented x3, gait normal, moves all extremities and no meningeal signs Cognition (Neuro): normal cognition Speech: normal speech Gait exam (Neuro): Normal gait present Extrem: General: normal to inspection, full ROM, capillary refill normal and normal gait Psych: Appearance: grossly normal and well kempt Mental Status: mental status grossly normal Speech and movement: Normal speech and movement present and Clear speech present Affect: normal affect Attitude: cooperative Course Course Level of Care: Express Care Visit Vital Signs Vital signs: Vital Signs Temperature 97.1 F L 12/07/24 12:57 Pulse Rate 77 12/07/24 12:57 Respiratory Rate 18 12/07/24 12:57 Blood Pressure 130/105 H 12/07/24 12:57 Pulse Oximetry 100 12/07/24 12:57 Oxygen Delivery Room Air 12/07/24 12:57 Temperature 97.1 F L 12/07/24 12:57 Pulse Rate 77 12/07/24 12:57 Respiratory Rate 18 12/07/24 12:57 Blood Pressure 130/105 H 12/07/24 12:57 Pulse Oximetry 100 12/07/24 12:57 Oxygen Delivery Room Air 12/07/24 12:57 Reviewed MDM - Skin/Abscess/Foreign Bdy MDM Narrative Medical decision making narrative: Patient sitting in exam room. Patient is nontoxic, vitals are stable. Patient presents with concerns for poison renate, 3 small areas are pointed out, no treatment prior to arrival Discussed [id number] treatment plan, will prescribe prednisone Patient is appropriate for outpatient treatment with close follow-up Discharge instructions reviewed with patient, as well as provided in writing per nursing staff. The instructions also include specific and strict return/GO TO THE ER as well as f/u information. All questions have been answered, and the patient deny any further questions with discharge and discharge plan. Some parts of this dictation were generated by voice recognition software and may contain typographical and/or grammatical inaccuracies. Differential Diagnosis Differential diagnosis: Likely abscess of skin or subcutaneous tissue, urticaria, allergic reaction to drug, cellulitis, eczema, insect bites, impetigo and contact dermatitis Critical Care Time Critical Care Time Critical Care Time: No Discharge Plan Discharge Clinical Impression: Contact dermatitis Qualifiers: Contact dermatitis type: unspecified Contact dermatitis trigger: other trigger Qualified Code(s): L25.8 - Unspecified contact dermatitis due to other agents Patient Disposition: Home Condition: Stable Instructions: Antibiotic Form, Contact Dermatitis (ED) Additional Instructions: The most important part of your care is follow up with Primary care provider. Take Benadryl 25-50 mg every 8 hours for itching Take Zyrtec every day for 14 days Take Pepcid 20mg daily for for 14 days Take the steroids starting today and take every morning. Avoid hot showers, Take cool showers. Hot showers will make rashes worse Apply cool compresses every 2-3 hours for 15 minutes Go to the ER for new or worsening symptoms such as shortness of breath. Patient Language: Turkish Prescriptions: New prednisone 20 mg tablet See Rx Instructions .Route .COMPLEX Qty: 20 0RF Rx Instructions: Take 60 mg daily for 3 days, 40 mg daily for 3 days, 20 mg daily for 3 days, 10mg day for 3 days triamcinolone acetonide 0.1 % cream 1 applic topical BID Qty: 30 0RF Follow-up/Referrals: Saul,WALTER Alba [Primary Care Provider] - 2 Weeks ([facility] care follow up ) Stand Alone Forms: Work/School Release IP Time of Disposition: 13:51
== END 2024-12-07 13:55 | disposition home or self-care (01) ==
PROVIDERS: Emergency Provider Nurse Practitioner; PCP Physician Assistant
DX: L25.8 Unspecified contact dermatitis due to other agents (principal)
CPT/HCPCS: 99213; G0463

== ENCOUNTER 2025-02-16 07:29 | Outpatient (CLI) | payer OTHER, SELFPAY ==
--- NOTE | ~2025-02-16 | MM_ITS ---
EXAMINATION: MM screening bea BI w [facility] HISTORY: Screening TECHNIQUE: Craniocaudal and mediolateral oblique 3-D tomosynthesis images were obtained and synthetic 2-D images were generated. CAD analysis was submitted and interpreted. COMPARISON: Comparison to multiple prior studies sequentially, with oldest reviewed study dated 06/29/2021. BREAST PARENCHYMAL COMPOSITION: There are scattered areas of fibroglandular density. FINDINGS: There is no evidence of suspicious mass, calcification, or architectural distortion to suggest malignancy in either breast. Scattered benign-appearing calcifications are present. IMPRESSION: 1. No mammographic evidence of malignancy. 2. Recommend routine screening mammography in one year. BI-RADS Category 2: Benign finding(s). Reviewed, dictated and finalized at location B.
== END 2025-02-16 07:30 | disposition home or self-care (01) ==
LOC: MICIMG 07:30
PROVIDERS: PCP Physician Assistant; Visit Provider Physician Assistant
DX: Z12.31 Encounter for screening mammogram for malignant neoplasm of breast (principal)
CPT/HCPCS: 77063; 77067